=== PATIENT | male | born 1955 | race Caucasian/White ===

== ENCOUNTER 2024-09-27 03:36 | Emergency (ER) | payer BC, MEDICAID, OTHER ==
[~2024-09-27] VITALS: Ht 167.6 cm; Wt 130.1 kg
--- NOTE | 2024-09-27 04:10 | ECG ---
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
--- NOTE | 2024-09-27 05:27 | ED.PDOC ---
History of Present Illness HPI Comments 68 y/o M, with a history of asthma, DM, HLD, HTN, and morbid obesity, presents with c/o HTN, today. Patient endorses on checking and noticing his blood pressure being elevated after being awoken, due to having sudden sensation of "something being off," this morning. He comments on a blood pressure at-home va lue of "180/91" and history of compliancy with his Lisinopril and Amlodipine blood pressure medications. Patient reports no recent stressors, strenuous activities, or additional relevant information at time of initial assessment, with exception of consuming "a jar of peanut butter" the night prior to going to bed. He denies any chest pain, shortness of breath, headache, vision or speech changes, dizziness, fever, chills, or other associated symptoms or modifiers at this time. Chief Complaint: High Blood Pressure Time Seen by MD: 05:10 Reviewed Notes: Nurses Notes, Medications, Allergies Allergies: Coded Allergies: NO KNOWN ALLERGIES (Unverified , 07/10/22) Information Source: Patient Mode of Arrival: Ambulatory Severity: Moderate Timing: Hours Duration: Since onset Prehospital treatment: None Past Medical History PAST MEDICAL HISTORY: Asthma, DM, High Lipids, HTN Past Medical History (Other): morbid obesity Surgical History: Denies all surgeries Family History Family History: Reviewed,noncontributory to illness Social History Smoker: Non-Smoker Alcohol: Denies ETOH Use Drugs: Denies Drug Use Lives In: Home Hematologic/Lymphatic: reports: others (HTN) All Other Systems: Reviewed and Negative (negative unless otherwise stated above or in HPI) Physical Exam General Appearance: No Apparent Distress, Obese HEENT: Normal ENT Inspection, Pharynx Normal, TMs Normal Neck: Full Range of Motion, Non-Tender, Normal, Normal Inspection Respiratory: Chest Non-Tender, Lungs Clear, No Accessory Muscle Use, No Respiratory Distress, Normal Breath Sounds Cardiovascular: No Edema, No JVD, No Murmur, No Gallop, Normal Peripheral Pulses, Regular Rate/Rhythm Breast Exam: Deferred Gastrointestinal: No Organomegaly, Non Tender, No Pulsatile Mass, Normal Bowel Sounds, Soft Genitalia: Deferred Pelvic: Deferred Rectal: Deferred Extremities: No calf tenderness, Normal capillary refill, Normal inspection, Normal range of motion, Non-tender, No pedal edema Musculoskeletal : Apperance: Normal Neurologic: Alert, mental health coordinator II-XII nml as Tested, No Motor Deficits, Normal Affect, Normal Mood, No Sensory Deficits Cerebellar Function: Normal Reflexes: Normal Skin: Dry, Normal Color, Warm Lymphatic: No Adenopathy Was a procedure done? Was a procedure done?: No EKG EKG : Pulse Rate (adult): 102 Girdler: Normal Cardiac Rhythm: ST Block: None Hypertrophy: None ST: Normal Differential Dx Considerations may include: HTN emergency, HTN essential, inappropriate medication dosage, noncompliance X-Ray, Labs, Meds, VS Vital Signs Date Time Temp Pulse Resp B/P (MAP) Pulse Ox O2 Delivery O2 Flow Rate FiO2 09/27/24 05:42 139/72 09/27/24 05:39 20 95 Room Air* 0 21 09/27/24 05:36 98.6 85 20 136/79 (98) 99 98.6 09/27/24 05:27 102 09/27/24 04:06 102 09/27/24 04:02 98.6 105 16 189/83 (118) 94 Lab Test 09/27/24 04:39 Range/Units Troponin I High Sensitivity 37 </=54 ng/L Time of 1ST Reevaluation: 05:40 Reevaluation 1ST: Unchanged Patient Education/Counseling: Diagnosis, Treatment Family Education/Counseling: No Family Present Departure 1 Departure Time of Disposition: 05:45 Impression: Primary Impression: HTN (hypertension) Qualified Codes: I10 - Essential (primary) hypertension Additional Impression: Noncompliance Disposition: 01 HOME / SELF CARE / HOMELESS Condition: Stable Additional Instructions: Reassessed patient, vital signs stable. Denies any new symptoms. Patient is able to tolerate PO and ambulate/be mobile at their baseline without concern. Risks and benefits of all medications given or prescribed, if any, discussed. All lab work, imaging and diagnostic studies were reviewed by me. The patient was counseled extensively on my clinical impression, diagnosis, expected course of the disease, and plan, including their follow-up care. Will discharge patient. Patient instructed to follow up with Primary Care Physician within 24-48 hours. Strict return precautions given for further exacerbation of symptoms or for new symptoms. The patient was given the opportunity to ask questions and all questions were answered by myself and the nursing/tech staff. Patient is in agr eement with the care plan. The patient verbally expressed understanding of the discharge instructions, including the reasons to return to the Emergency Department. Discharged With: Self Critical Care Note Critical Care Time?: No Stability Stability form required: No Heart Score Heart Score: Heart Score Response (Comments) Value History Slightly Suspicious 0 EKG Normal 0 Age >65 2 Risk Factors >3 or Hx ASHD 2 Troponin Normal limit 0 Total 4 I personally scribed for AILIN SANON MD ([email or web address]) on 09/27/24 at 05:27. Electronically submitted by Alvarez West ([email or web address]). I personally scribed for AILIN SANON MD ([email or web address]) on 09/27/24 at 05:30. Electronically submitted by Alvarez West ([email or web address]). AILIN SANON MD Sep 27, 2024 05:27
[2024-09-27 05:36] VITALS: BP 136/79; PULSE 85; TEMP 98.6
[2024-09-27 05:39] VITALS: RESP 20; O2SAT 95
[2024-09-27] MEDS: cloNIDine HCL 0.1 MG TAB PO ONE (05:42)
== END 2024-09-27 05:50 | disposition home or self-care (01) ==
LOC: ER 03:36
DX: I10 Essential (primary) hypertension (principal); Z91.199 Patient's noncompliance with other medical treatment and regimen due to unspecified reason; J45.909 Unspecified asthma, uncomplicated; E11.9 Type 2 diabetes mellitus without complications; E78.5 Hyperlipidemia, unspecified; E66.01 Morbid (severe) obesity due to excess calories; Z68.42 Body mass index [BMI] 45.0-49.9, adult
CPT/HCPCS: 36415; 84484; 93005